=== PATIENT | male | born 2000 | race American Indian/Alaskan Native ===

== ENCOUNTER 2020-04-08 10:15 | Emergency (ER) | payer SELFPAY ==
[2020-04-08 10:35] VITALS: BP 154/91
[2020-04-08] MEDS ORDERED: KETOROLAC 60 MG/2 ML INJ IM ONE (10:49)
--- NOTE | 2020-04-08 10:52 | Emergency Department Report ---
HPI - General Chief Complaint: Multiple Trauma Time Seen by Provider: 04/08/20 10:43 - HPI HPI: Room 26 The patient is a 19-year-old male present with a chief complaint of left testicular pain. The patient states 3 days ago while playing football (with equipment) he was struck with a helmet in the groin. Patient states he is noticed pain and swelling of the left testicle prompted him to come to the emergency department. Patient denies hematuria or dysuria. Patient denies fever. Patient gives his pain a score of 8/10. The patient drove himself to the emergency department and there are no visitors present ED Past Medical Hx - Past Medical History Previous Medical History?: Yes - Surgical History Past Surgical History?: No Additional Surgical History: Left hand surgery - Family History Family history: no significant - Social History Smoking Status: Never Smoker Substance Use Type: None (Denies illicit drug use), Alcohol (Occasional) - Medications Home Medications: Home Medications Medication Instructions Recorded Confirmed Last Taken Type Ciprofloxacin HCl [Ciprofloxacin 500 mg PO Q12HR #20 tab 04/08/20 Unknown Rx TAB] HYDROcodone/APAP 5-325 [[place] 1 - 2 each PO Q6HR PRN #10 tablet 04/08/20 Unknown Rx 5/325] Ibuprofen [Motrin 800 MG tab] 800 mg PO Q8HR PRN #20 tablet 04/08/20 Unknown Rx ED Review of Systems ROS: Stated complaint: TESTICULAR PAIN Other details as noted in HPI Constitutional: denies: fever Respiratory: no symptoms reported Endocrine: no symptoms reported Genitourinary: testicular pain Physical Exam - Physical Exam Vital Signs: Vital Signs 04/08/20 10:31 Temperature 98.3 F Pulse Rate 98 H Respiratory 18 Rate Blood Pressure 154/91 Blood Pressure 154/91 [Right] O2 Sat by Pulse 99 Oximetry Physical Exam: GENERAL: The patient is well-developed well-nourished male sitting on stretcher not appearing to be in acute distress. [] HEENT: Normocephalic. Atraumatic. Extraocular motions are intact. Patient has moist mucous membranes. NECK: Supple. Trachea midline CHEST/LUNGS: There is no respiratory distress noted. SKIN: There is no rash. There is no edema. There is no diaphoresis. NEURO: The patient is awake, alert, and oriented. The patient is cooperative. The patient has normal speech MUSCULOSKELETAL: There is no evidence of acute injury. ED Course Vital Signs 04/08/20 10:31 Temperature 98.3 F Pulse Rate 98 H Respiratory 18 Rate Blood Pressure 154/91 Blood Pressure 154/91 [Right] O2 Sat by Pulse 99 Oximetry ED Medical Decision Making - Radiology Data Radiology results: report reviewed (Testicular ultrasound), image reviewed (Testicular ultrasound) Findings [facility] [address] [place] [address] Ultrasound Report Signed Patient: ADAL BIRD MR#: [id number] : 2000 Acct:[id number] Age/Sex: 19 / M ADM Date: 04/08/20 Loc: ED Attending Dr: Ordering Physician: DELLA KIRKLAND MD Date of Service: 04/08/20 Procedure(s): US testicular doppler comp Accession Number(s): [id number] cc: DELLA KIRKLAND MD ULTRASOUND SCROTUM INDICATION / CLINICAL INFORMATION: Struck in the groin with a helmet during football. COMPARISON: None available. FINDINGS -- RIGHT TESTIS: Size = 4.2 x 2.3 x 2.9 cm. - Appearance: No significant abnormality. - Cyst or Mass: None. - Color Doppler Flow: No significant abnormality. EPIDIDYMIS: No significant abnormality. HYDROCELE: None. VARICOCELE: None demonstrated. FINDINGS -- LEFT TESTIS: Size = 4.3 x 2.1 x 3.6 cm. - Appearance: No significant abnormality. - Cyst or Mass: None. - Color Doppler Flow: No significant abnormality. EPIDIDYMIS: No significant abnormality. HYDROCELE: Trace. VARICOCELE: None demonstrated. ADDITIONAL FINDINGS: None. IMPRESSION: 1. Trace left-sided hydrocele. 2. No additional significant sonographic abnormality. Signer Name: Tabitha Malcolm MD Signed: 04/08/2020 12:56 PM Workstation Name: [id number] Transcribed By: SS Dictated By: TABITHA MALCOLM Electronically Authenticated By: TABITHA MALCOLM Signed Date/Time: 04/08/20 1256 DD/ 1254 TD/TT: - Differential Diagnosis Testicular contusion, testicular hematoma, Critical care attestation.: If time is entered above; I have spent that time in minutes in the direct care of this critically ill patient, excluding procedure time. ED Disposition Clinical Impression: Left hydrocele, Testicular pain, left, UTI (urinary tract infection) Disposition: DC- TO HOME OR SELFCARE Is pt being admited?: No Does the pt Need Aspirin: No Condition: Stable Instructions: Urinary Tract Infection in Men (ED) Additional Instructions: Return to the emergency department should you develop worsening symptoms, inability to tolerate food or liquids, high fever or any other concerns Prescriptions: Ciprofloxacin HCl [Ciprofloxacin TAB] 500 mg PO Q12HR #20 tab Ibuprofen [Motrin 800 MG tab] 800 mg PO Q8HR PRN #20 tablet PRN Reason: Pain, Moderate (4-6) HYDROcodone/APAP 5-325 [[place] 5/325] 1 - 2 each PO Q6HR PRN #10 tablet PRN Reason: Pain Referrals: LOUIE ESTRELLA MD [Staff Physician] - 3-5 Days (Dr. Estrella is a urologist. Please follow-up with him for further evaluation) Time of Disposition: 13:14
[2020-04-08 11:36] LABS: Bilirubin,Urine NEG (Negative); Blood,Urine SM (Negative); Color,Urine Yellow (Yellow); Mucus,Urine FEW /HPF; Sperm,Urine FEW /HPF (NP)
[2020-04-08 11:38] LABS: WBC,Urine > 182.0 /HPF (0.0-6.0)
--- NOTE | 2020-04-08 13:01 | Ultrasound Report ---
ULTRASOUND SCROTUM INDICATION / CLINICAL INFORMATION: Struck in the groin with a helmet during football. COMPARISON: None available. FINDINGS -- RIGHT TESTIS: Size = 4.2 x 2.3 x 2.9 cm. - Appearance: No significant abnormality. - Cyst or Mass: None. - Color Doppler Flow: No significant abnormality. EPIDIDYMIS: No significant abnormality. HYDROCELE: None. VARICOCELE: None demonstrated. FINDINGS -- LEFT TESTIS: Size = 4.3 x 2.1 x 3.6 cm. - Appearance: No significant abnormality. - Cyst or Mass: None. - Color Doppler Flow: No significant abnormality. EPIDIDYMIS: No significant abnormality. HYDROCELE: Trace. VARICOCELE: None demonstrated. ADDITIONAL FINDINGS: None. IMPRESSION: 1. Trace left-sided hydrocele. 2. No additional significant sonographic abnormality. Signer Name: Adi Malcolm MD Signed: 04/08/2020 12:56 PM Workstation Name: [id number]
[2020-04-08] MEDS ORDERED: LIDOCAINE-MPF (1%) 10 MG/1 ML VIAL 5 ML INFILTRATI ONE (13:14)
[2020-04-08] MEDS ORDERED: AZITHROMYCIN 1 GM ORAL PWDR PACKET PO ONE (13:14)
== END 2020-04-08 14:49 | disposition home or self-care (01) ==
LOC: ED 10:15
DX: N43.3 Hydrocele, unspecified (principal); N39.0 Urinary tract infection, site not specified; Z98.890 Other specified postprocedural states; Z79.899 Other long term (current) drug therapy
CPT/HCPCS: 81001; 93975; 96372; 99284; J0696; J1885